=== PATIENT | male | born 1950 | race Caucasian/White ===

== ENCOUNTER 2023-10-11 18:43 | Emergency (ER) | payer OTHER, SELFPAY ==
[2023-10-11 18:53] VITALS: BP 165/67; PULSE 49; RESP 18; TEMP 36.4; O2SAT 95; BMI 23.6
--- NOTE | 2023-10-11 19:05 | CRLHL7_ITS ---
For Patients: As a result of the Century Cures Act, medical imaging exams and procedure reports are released immediately into your electronic medical record. You may view this report before your referring provider. If you have questions, please contact your health care provider. INDICATION: Fall. Technique Noncontrast CT images of the lumbar spine. COMPARISON: None. FINDINGS: Transitional lumbosacral anatomy. For purposes of this exam, the transitional segment is designated S1 and demonstrates lumbarization. Exaggerated lumbar lordosis. Mild leftward lumbar curvature. No acute fracture. Grade 1 anterolisthesis mild posterior disc bulging, and advanced facet arthropathy contribute up to moderate spinal canal stenosis at L4-5. There is mild to moderate neural foraminal narrowing at L4-5 and L5-S1. IMPRESSION: 1. No acute fracture. 2. Transitional lumbosacral anatomy. For purposes of this exam, the transitional segment is designated S1 and demonstrates lumbarization. 3. Multilevel lumbar spondylosis, including moderate spinal canal stenosis at L4-5. Please note that all CT scans at this facility use dose modulation, iterative reconstruction, and/or weight-based dosing when appropriate to reduce radiation dose to as low as reasonably achievable. Dictated by Poncho Philippe MD @ 10/11/2023 7:59:26 PM (Electronically Signed)
--- NOTE | 2023-10-11 19:05 | CRLHL7_ITS ---
For Patients: As a result of the Century Cures Act, medical imaging exams and procedure reports are released immediately into your electronic medical record. You may view this report before your referring provider. If you have questions, please contact your health care provider. INDICATION: fall off chair while standing on it x 3 days ago, LT back pain w/intermittent numbness in LT leg. TECHNIQUE: CT pelvis without contrast. COMPARISON: Same day CT lumbar spine. FINDINGS: Bones: Alignment is normal. No sign of acute fracture. No suspicious bony lesions. Joints: [id number] in the hip joints degenerative changes in the hip joints. Soft tissues: In the left posterior paraspinal subcutaneous soft tissues, there is a mildly hyperdense fluid collection that measures 7.6 x 1.9 x 5.2 centimeters (4/127 and 5/58), favored to reflect a hematoma, with moderate surrounding soft tissue stranding postsurgical changes in the partially visualized right lower ventral abdominal wall. IMPRESSION: No acute fracture or dislocation in the pelvis or proximal femurs. Subcutaneous hematoma in the left posterior paraspinal soft tissues measures up to 7.6 centimeters. Please note that all CT scans at this facility use dose modulation, iterative reconstruction, and/or weight-based dosing when appropriate to reduce radiation dose to as low as reasonably achievable. Dictated by Tramaine Rollins MD @ 10/11/2023 9:07:43 PM (Electronically Signed)
--- NOTE | 2023-10-11 19:06 | ED_ITS ---
HPI - General Adult General Chief complaint: Fall/Minor Trauma <Anna Ziegler MD - Last Filed: 10/11/23 20:41> Stated complaint: Fell 3 days ago; left pain on lower back/left side <Anna Ziegler MD - Last Filed: 10/11/23 20:41> Time Seen by Provider: 10/11/23 18:59 <Anna Ziegler MD - Last Filed: 10/11/23 20:41> Source: patient <Anna Ziegler MD - Last Filed: 10/11/23 20:41> Mode of arrival: ambulatory <Anna Ziegler MD - Last Filed: 10/11/23 20:41> Limitations: no limitations <Anna Ziegler MD - Last Filed: 10/11/23 20:41> History of Present Illness HPI narrative: [age] year male presenting today with low back pain. Patient states that 3 days ago he was hanging something up while standing on chair and he fell backwards hitting the ground. He has pain across the lower back that radiates into the left hip. It hurts to walk. Pain is not getting any better. He also has some discomfort across both shoulders. He denies shortness of breath, abdominal pain. Difficulty urinating or having bowel movements. He denies feeling dizzy or lightheaded. He did not hit his head or lose consciousness. Denies neck pain. <Anna Ziegler MD - Last Filed: 10/11/23 20:41> Related Data Home medications: Home Medications ?Medication ?Instructions ?Recorded ?Confirmed aspirin 81 mg tablet,delayed 81 mg PO QDAY 03/16/23 10/11/23 release (Adult Low Dose Aspirin) gabapentin 100 mg capsule 100 mg PO BID 03/16/23 10/11/23 multivitamin (Daily Multi-Vitamin 1 tab PO QDAY 03/16/23 03/25/23 tablet) simvastatin 40 mg tablet 40 mg PO QHS 03/16/23 10/11/23 tramadol 50 mg tablet 50 mg PO BID 03/16/23 10/11/23 <Anna Ziegler MD - Last Filed: 10/11/23 20:41> Allergies/adverse reactions: Allergies Allergy/AdvReac Type Severity Reaction Status Date / Time Penicillins Allergy Unknown Unknown Verified 10/11/23 18:57 <Anna Ziegler MD - Last Filed: 10/11/23 20:41> Review of Systems Status of ROS: Reports: 10 or more systems reviewed and unremarkable except as noted in History and below <Anna Ziegler MD - Last Filed: 10/11/23 20:41> [facility] Medical History: Medical History History of agent [place] exposure ?Z77.098 - Contact with and (suspected) exposure to other hazardous, chiefly nonmedicinal, chemicals (ICD-10) History of kidney stones ?Z87.442 - Personal history of urinary calculi (ICD-10) <Anna Ziegler MD - Last Filed: 10/11/23 20:41> Surgical History: Surgical History (Updated 03/25/23 @ 11:18 by Jr Linton MD) History of exploratory laparotomy ?Z98.890 - Other specified postprocedural states (ICD-10) History of prostate biopsy ?Z98.890 - Other specified postprocedural states (ICD-10) Hx of fusion of cervical spine (05/22/14) ?Z98.1 - Arthrodesis status (ICD-10) History of bilateral inguinal hernia repair ?Z98.890 - Other specified postprocedural states (ICD-10) ?Z87.19 - Personal history of other diseases of the digestive system (ICD-10) <Anna Ziegler MD - Last Filed: 10/11/23 20:41> Family History: Family History Brother Prostate cancer, Onset Age: 65 <Anna Ziegler MD - Last Filed: 10/11/23 20:41> Social History: Social History What is your current living situation?: I presently have a place to live Problems where you live: declined to answer In the past 12 months, utilities in danger of being shut off: no In past 12 months, lack of transportation kept you from medical appts, meetings, work, or getting things needed for daily living: no In the past 12 mos, have been you worried that your food would run out before you had money to buy more?: never true In the past 12 mos, the food you bought just didn't last and you didn't have money to buy more?: never true Smoking Status: Smoker, status unknown Non-prescribed substance use: denies use How often does anyone, including family, friends and others, physically hurt you : never How often does anyone, including family, friends and others, insult or talk down to you: never How often does anyone, including family, friends and others, threaten you with harm: never How often does anyone, including family, friends and others, scream or curse at you: never Little interest or pleasure in doing things: not at all Feeling down, depressed, or hopeless: not at all <Anna Ziegler MD - Last Filed: 10/11/23 20:41> Exam Narrative: Exam Narrative: Well-nourished well-developed patient in no acute distress. Alert and oriented. Answers questions appropriately. Mood and affect are appropriate. Thoughts are goal oriented and rational. No tangential or magical thinking noted. Patient speaks in full sentences without needing to catch his breath. HEENT: Normocephalic atraumatic. Pupils are equally round reactive to light. Extraocular muscles are intact. Conjunctivae are moist without any icterus noted. Moist mucous membranes. Neck is soft. No tenderness to palpation over the cervical spine. Range of motion with flexion, extension, side way bending and rotation without pain. Cardiovascular: Heart is regular rate and rhythm. Lungs: Clear to auscultation bilaterally. Patient takes deep breaths without any discomfort. Abdomen: Soft and nontender nondistended with normal bowel sounds. Patient has scarring on the abdominal wall and the right flank from previous surgeries. No tenderness over the spleen or liver. Back: Patient has superficial abrasions on the upper back on both sides. This appears to be healing appropriately. He has no tenderness to palpation of the cervical or thoracic spine. No tenderness over the shoulders or upper back. Good range of motion of both shoulders without pain. Patient has is significant hematoma across the entire low back radiates into the buttocks. The entire area is very tender including acute tenderness over the lumbar spine and coccyx. <Anna Ziegler MD - Last Filed: 10/11/23 20:41> Const: Vital Signs, click to edit/add: Vital Signs - 24 hr 10/11/23 18:53 10/11/23 20:53 Temperature 97.6 F Pulse Rate [Pulse Oximeter] 49 L 55 L Respiratory Rate 18 16 Blood Pressure [Ri ght Upper Arm] 165/67 H 144/78 H Pulse Oximetry 95 95 Oxygen Delivery Me thod Room Air Room Air <Anna Ziegler MD - Last Filed: 10/11/23 20:41> Vital Signs, click to edit/add: Vital Signs - 24 hr 10/11/23 18:53 10/11/23 20:53 Temperature 97.6 F Pulse Rate [Pulse Oximeter] 49 L 55 L Respiratory Rate 18 16 Blood Pressure [Ri ght Upper Arm] 165/67 H 144/78 H Pulse Oximetry 95 95 Oxygen Delivery Me thod Room Air Room Air <Chet Adame MD - Last Filed: 10/11/23 21:17> Course Course ED Course: Discussed imaging and proceeded with a lumbar and pelvic CT. Lumbar CT did not have any evidence of fractures. Pelvic CT results pending - follow up on results by oncoming MD. <Anna Ziegler MD - Last Filed: 10/11/23 20:41> Reevaluation(s) Time of Reevaluation #1: 21:17 <Chet Adame MD - Last Filed: 10/11/23 21:17> Reevaluation #1: Discussed with the patient, no evidence of an acute fracture of his pelvis . There is a hematoma, this will take some time to resolve, the she should be using heat at this point, he can uses other medications I explained this to him he was comfortable with this plan he is walking otherwise normally. <Chet Adame MD - Last Filed: 10/11/23 21:17> Vital Signs Vital signs: Initial Vital Signs Temperature 97.6 F 10/11/23 18:53 Temperature Source Temporal Artery Scan 10/11/23 18:53 Pulse Rate 49 L 10/11/23 18:53 Pulse Rhythm Regular 10/11/23 18:53 Respiratory Rate 18 10/11/23 18:53 Blood Pressure 165/67 H 10/11/23 18:53 Blood Pressure Mean 99 10/11/23 18:53 Blood Pressure Position Sitting 10/11/23 18:53 Pulse Oximetry 95 10/11/23 18:53 Oxygen Delivery Method Room Air 10/11/23 18:53 Vital Signs Temperature 97.6 F 10/11/23 18:53 Pulse Rate 49 L 10/11/23 18:53 Respiratory Rate 18 10/11/23 18:53 Blood Pressure 165/67 H 10/11/23 18:53 Pulse Oximetry 95 10/11/23 18:53 Oxygen Delivery Method Room Air 10/11/23 18:53 Temperature 97.6 F 10/11/23 18:53 Pulse Rate 55 L 10/11/23 20:53 Respiratory Rate 16 10/11/23 20:53 Blood Pressure 144/78 H 10/11/23 20:53 Pulse Oximetry 95 10/11/23 20:53 Oxygen Delivery Method Room Air 10/11/23 20:53 <Anna Ziegler MD - Last Filed: 10/11/23 20:41> Initial Vital Signs Temperature 97.6 F 10/11/23 18:53 Temperature Source Temporal Artery Scan 10/11/23 18:53 Pulse Rate 49 L 10/11/23 18:53 Pulse Rhythm Regular 10/11/23 18:53 Respiratory Rate 18 10/11/23 18:53 Blood Pressure 165/67 H 10/11/23 18:53 Blood Pressure Mean 99 10/11/23 18:53 Blood Pressure Position Sitting 10/11/23 18:53 Pulse Oximetry 95 10/11/23 18:53 Oxygen Delivery Method Room Air 10/11/23 18:53 Vital Signs Temperature 97.6 F 10/11/23 18:53 Pulse Rate 49 L 10/11/23 18:53 Respiratory Rate 18 10/11/23 18:53 Blood Pressure 165/67 H 10/11/23 18:53 Pulse Oximetry 95 10/11/23 18:53 Oxygen Delivery Method Room Air 10/11/23 18:53 Temperature 97.6 F 10/11/23 18:53 Pulse Rate 55 L 10/11/23 20:53 Respiratory Rate 16 10/11/23 20:53 Blood Pressure 144/78 H 10/11/23 20:53 Pulse Oximetry 95 10/11/23 20:53 Oxygen Delivery Method Room Air 10/11/23 20:53 <Chet Adame MD - Last Filed: 10/11/23 21:17> Medical Decision Making Imaging Data Lumbar spine CT: Attestation: I have reviewed the pertinent imaging results. <Anna Ziegler MD - Last Filed: 10/11/23 20:41> Radiologist's impression: Noncontrast CT images of the lumbar spine. COMPARISON: None. FINDINGS: Transitional lumbosacral anatomy. For purposes of this exam, the transitional segment is designated S1 and demonstrates lumbarization. Exaggerated lumbar lordosis. Mild leftward lumbar curvature. No acute fracture. Grade 1 anterolisthesis mild posterior disc bulging, and advanced facet arthropathy contribute up to moderate spinal canal stenosis at L4-5. There is mild to moderate neural foraminal narrowing at L4-5 and L5-S1. IMPRESSION: 1. No acute fracture. 2. Transitional lumbosacral anatomy. For purposes of this exam, the transitional segment is designated S1 and demonstrates lumbarization. 3. Multilevel lumbar spondylosis, including moderate spinal canal stenosis at L4-5. <Anna Ziegler MD - Last Filed: 10/11/23 20:41> Discharge Plan Discharge Clinical Impression: Fall, Low back pain, Hematoma <Anna Ziegler MD - Last Filed: 10/11/23 20:41> Patient Disposition: Home, Self-Care <Anna Ziegler MD - Last Filed: 10/11/23 20:41> Condition: Stable <Anna Ziegler MD - Last Filed: 10/11/23 20:41> Instructions: Fall Prevention for Older Adults (ED), Acute Low Back Pain (ED), Fall Prevention (ED) <Anna Ziegler MD - Last Filed: 10/11/23 20:41> Additional Instructions: Rest use of heat on this area. You may take your normal tramadol I would use some acetaminophen with this this will take probably at least 4 weeks to resolve maybe longer, continue with your other medications as directed, no evidence of fracture. <Anna Ziegler MD - Last Filed: 10/11/23 20:41> Prescriptions: No Action simvastatin 40 mg tablet 40 mg PO QHS gabapentin 100 mg capsule 100 mg PO BID tramadol 50 mg tablet 50 mg PO BID multivitamin [Daily Multi-Vitamin] Tablet 1 tab PO QDAY aspirin [Adult Low Dose Aspirin] 81 mg tablet,delayed release (DR/EC) 81 mg PO QDAY <Anna Ziegler MD - Last Filed: 10/11/23 20:41> Follow Up/Referrals: Tone Monzon MD [Primary Care Provider] - <Anna Ziegler MD - Last Filed: 10/11/23 20:41> Stand Alone Forms: [facility] Info Instructions <Anna Ziegler MD - Last Filed: 10/11/23 20:41>
[2023-10-11 20:53] VITALS: BP 144/78; PULSE 55; RESP 16; O2SAT 95
== END 2023-10-11 21:26 | disposition home or self-care (01) ==
PROVIDERS: Emergency Provider Family Medicine; PCP Family Medicine
DX: S30.0XXA Contusion of lower back and pelvis, initial encounter (principal); M54.50 Low back pain, unspecified; W07.XXXA Fall from chair, initial encounter
CPT/HCPCS: 72131; 72192; 99283; 99284

== ENCOUNTER 2024-03-07 07:19 | Day surgery (SDC) | payer OTHER, SELFPAY ==
[2024-03-07] VITALS (12 sets, daily range): BP systolic 138–168; BP diastolic 67–91; PULSE 51–58; RESP 16; TEMP 36.6–37; O2SAT 90–95; BMI 24.8
[2024-03-07] MEDS: 0.9 % SODIUM CHLORIDE 500 ML 500 ML IV (08:17)
[2024-03-07] MEDS: SODIUM CHLORIDE 0.9 % (FLUSH) 10 ML SYRINGE IVF (08:17)
--- NOTE | 2024-03-07 09:22 | W.PM.H&PU ---
History & Physical Update History & Physical Update H&P Reviewed and patient assessed: No changes noted
[2024-03-07] MEDS: CLINDAMYCIN 900 MG/50 ML-D5W IVPB (09:40)
[2024-03-07] MEDS: BUPIVACAINE 0.25% 30 ML INJECTION (10:20)
--- NOTE | 2024-03-07 10:25 | P.GSOP_ITS ---
Operative Note Date of procedure: 03/07/24 Pre-op diagnosis: Umbilical hernia Post-op diagnosis: Same Type of Procedure: Open primary repair of 1 cm incarcerated umbilical hernia Indications: The patient is a 74-year-old male who was noted to have an umbilical hernia. This had been present for some time, however has has become increasingly uncomfortable for him. After discussions of options, he elected to proceed with repair. Procedure Description: After discussing the risks and benefits of the procedure, the patient signed informed consent.? The operative site was marked and the patient was brought to the operating room and placed on the operating table in supine position.? Care w as taken to pad the patient's pressure points.?? The patient was then intubated by anesthesia.?? The operative site was then prepped and draped in the usual sterile fashion.? A time-out was then performed. An incision was made at the inferior aspect of the patient's umbilicus. Since there was redundant skin over the umbilicus, the inferior-most portion of the skin at the umbilicus was excised because of associated excoriated skin from removing debris from his belly button during the prep. This was discarded. The umbilical skin was then removed with a combination of cautery and blunt dissec tion from the hernia. A large amount of omental fat was incarcerated within the hernia. The hernia sac was opened, and carefully this was dissected through and divided with a combination of cautery and ties when necessary. At the hernia opening, it appeared as though there could be a portion of bowel wall, likely transverse colon as it was adherent to the herniated omentum. Carefully, the attached, herniated omentum was divided and what appeared to be colon was easily reduced in the abdomen. The omentum was discarded. The hernia opening was 1 cm in size. Given its small size, the decision was made to repair the hernia primarily. I did ensure that no tissue was stuck to the fascia posteriorly, gently dissecting this away bluntly. The fascial edges were cleared anteriorly. Then, using 0 Nurolon suture, I closed the defect in a [id number] fashion. Once this was done, the umbilicus was reapproximated to the fascia using 3-0 Vicryl. The dermis was closed with 3-0 Vicryl interrupted suture and 4-0 Monocryl running subcuticular suture. Glue was then applied. ? The patient was then woken and transported to the recovery area in stable condition. ? The patient tolerated the procedure well. Findings: 1 cm umbilical hernia with incarcerated omentum and possible sliding portion of transverse colon Anesthesia: MARIA TERESA Surgeon: Yanna Herrera MD Estimated blood loss (mL): 5 Condition: stable Disposition: PACU
--- NOTE | 2024-03-07 10:51 | W.ANESCHARGE ---
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
[2024-03-07] MEDS: fentaNYL 100 MCG/2 ML inj 50 MCG IVP ×2 (11:00→11:10)
== END 2024-03-07 12:23 | disposition home or self-care (01) ==
PROVIDERS: PCP Family Medicine; Visit Provider Surgery
PROC: (CPT 49592; principal; 2024-03-07 08:45)
DX: K42.0 Umbilical hernia with obstruction, without gangrene (principal)
CPT/HCPCS: 49592; 00750; 99100; J0330; J0665; J0736; J1100; J2405; J2704; J3010; J3490; J7030